=== PATIENT | female | born 1995 | race African-American/Black ===

== ENCOUNTER 2016-10-04 10:14 | Emergency (ER) | payer SELFPAY ==
[2016-10-04 10:16] VITALS: BP 118/80; PULSE 81; RESP 12; TEMP 98.2; O2SAT 99
--- NOTE | 2016-10-04 12:00 | PD ---
HPI Chief Complaint: Junior Buyer Problem/Complaint Time Seen by Provider: 11:37 Travel History International Travel<30 days: No Contact w/Intl Traveler<30days: No Traveled to known affect area: No History of Present Illness HPI 21 YO F presents to the Ed for evaluation of 4 day history of vulvar blisters. Patient endorses unprotected sex with a male partner "a few days" before onset of symptoms. She endorses dysuria and pain in the vulva when urine touches the blisters. She denies fevers, chills, nausea, vomiting, abdominal pain. She is currently menstruating. [facility], [facility] Social History Tobacco Use: No Allergies-Medications (Allergen,Severity, Reaction): Coded Allergies: No Known Allergies (Unverified , 10/04/16) Reported Meds & Prescriptions Reported Meds & Active Scripts Active Acyclovir 400 Mg Tab 400 Mg PO TID 10 Days Bactrim DS (Sulfamethoxazole-Trimethoprim) 800-160 Mg Tab 1 Tab PO BID Flagyl (Metronidazole) 500 Mg Tab 500 Mg PO BID 7 Days Review of Systems Except as stated in HPI: all other systems reviewed are Neg Physical Exam Narrative GENERAL: Well-nourished, well-developed nontoxic-appearing black female in no acute distress. SKIN: Focused skin assessment warm/dry. HEAD: Normocephalic. EYES: No scleral icterus. No injection or drainage. NECK: Supple, trachea midline. No JVD or lymphadenopathy. CARDIOVASCULAR: Regular rate and rhythm without murmurs, gallops, or rubs. RESPIRATORY: Breath sounds equal bilaterally. No accessory muscle use. GASTROINTESTINAL: Abdomen soft, non-tender, nondistended. GENITOURINARY: Multiple pustules on the vulva and vaginal introitus, suspicious for herpes. Vaginal vault with small amount of blood and thin white drainage. Cervical os was closed small amount of blood emanating from the os. No cervical motion tenderness. Uterus nontender and nonenlarged. Bilateral adnexa nontender without masses. MUSCULOSKELETAL: No cyanosis, or edema. BACK: Nontender without obvious deformity. No CVA tenderness. Data Data Last Documented VS Vital Signs Date Time Temp Pulse Resp B/P (MAP) Pulse Ox O2 Delivery O2 Flow Rate FiO2 10/04/16 12:27 98.1 76 18 111/69 (83) 100 Room Air Orders Orders Herpes Simplex Virus Culture (10/04/16 11:38) Gc And Chlamydia Pcr (10/04/16 11:38) Wet Prep Profile (10/04/16 11:38) Urinalysis - C+S If Indicated (10/04/16 11:38) Ed Urine Pregnancytest Poc (10/04/16 11:42) Urine Culture (10/04/16 12:25) Metronidazole (Flagyl) (10/04/16 13:00) Azithromycin Powd Pack (Zithromax Powd P (10/04/16 13:00) Ceftriaxone Inj (Rocephin Inj) (10/04/16 13:00) Lidocaine 1% Inj (50 Ml) (Xylocaine 1% I (10/04/16 13:00) Sulfamet-Trimeth Ds 800-160 Mg (Bactrim (10/04/16 13:00) Labs Laboratory Tests Test 10/04/16 12:15 10/04/16 12:25 Clue Cells (Wet Prep) PRESENT Vaginal Trichomonas (Wet Prep) NONE SEEN Vaginal Yeast (Wet Prep) NONE SEEN Urine Color YELLOW Urine Turbidity HAZY Urine pH 6.0 Urine Specific [place] 1.025 Urine Protein 30 mg/dL Urine Glucose (UA) NEG mg/dL Urine Ketones NEG mg/dL Urine Occult Blood MOD Urine Nitrite NEG Urine Bilirubin NEG Urine Urobilinogen 8.0 MG/DL Urine Leukocyte Esterase LARGE Urine RBC 73 /hpf Urine WBC /hpf Urine WBC Clumps RARE Urine Squamous Epithelial Cells 4 /hpf Urine Transitional Epithelial Cells <1 /hpf Urine Bacteria MANY /hpf Urine Mucus MANY /lpf Microscopic Urinalysis Comment CULTURE INDICATED MDM Medical Decision Making Medical Screen Exam Complete: Yes Emergency Medical Condition: Yes Differential Diagnosis Herpes genitalis versus folliculitis versus UTI versus STI versus other Narrative Course 21-year-old female with complaint of vaginal blistering after unprotected sex with a male partner. Patient denies fever, chills, nausea, vomiting, abdominal pain. She is currently menstruating. Vitals reviewed. Physical exam reveals a well-appearing black female no acute distress. There are pustules in the vulva and introitus that are suspicious for herpes simplex. Scant blood and thin white discharge in the vaginal vault is positive for clue cells. ED urine test negative. UA hazy, moderate occult blood, large leukocyte esterase, and innumerable wbc's in clumps, many bacteria. Culture pending. Patient was treated empirically for gonorrhea ankle media. She is prescribed Flagyl 500 mg twice a day 7 days, Bactrim DS twice a day 3 days, acyclovir 400 mg 3 times a day 10 days with one refill. I spent 5-10 minutes explaining the course of the various illnesses. She is instructed to abstain from sex until test of cure as proven. Follow-up with the [facility] Department, notify all partners, take medications as prescribed, return for worsening symptoms. She indicated understanding of the instructions and is agreeable to the care plan. She is stable and discharged home. Diagnosis Primary Impression: Bacterial vaginosis Additional Impressions: Cystitis Vulvar lesion Referrals: [facility] Dept. Patient Instructions: Bacterial Vaginosis (ED), Chlamydia (ED), General Instructions, Genital Herpes Simplex (ED), Gonorrhea (ED), Urinary Tract Infection in Women (ED) Additional Instructions: Rest, hydrate. Take all antibiotics as prescribed, even if her symptoms resolved. Take Valtrex as prescribed for the next 10 days. Follow-up with the health Department for test of cure and additional STD screening as discussed. Notify all partners of positive STD findings. Abstain from sex until test of cure is proven. Return to the ED for any urgent or emergent medical condition. Med/Other Pt SpecificInfo: Prescription(s) given Scripts Acyclovir (Acyclovir) 400 Mg Tab 400 MG PO TID for Mgmt Viral Infection for 10 Days, TAB 1 Refill Prov: Facundo Parada MD 10/04/16 Sulfamethoxazole-Trimethoprim (Bactrim DS) 800-160 Mg Tab 1 TAB PO BID for Infection, #6 TAB 0 Refills Prov: Facundo Parada MD 10/04/16 Metronidazole (Flagyl) 500 Mg Tab 500 MG PO BID for Infection for 7 Days, TAB 0 Refills Prov: Facundo Parada MD 10/04/16 Disposition: 01 DISCHARGE HOME Condition: Stable Yolanda Real Oct 04, 2016 12:00
[2016-10-04 12:27] VITALS: BP 111/69; PULSE 76; RESP 18; TEMP 98.1; O2SAT 100
[2016-10-04 12:46] LABS: BACTERIA, URINE MANY /hpf; BLOOD, URINE MOD (NEG); GLUCOSE,URINE NEG (NEG); KETONE, URINE NEG (NEG); MUCUS URINE MANY /lpf (OCC); NITRITE,URINE NEG (NEG); SQUAMOUS EPITHELIAL CELL URINE 4 /hpf (0-5); TRANSITIONAL EPI CELLS, URINE <1 /hpf; URINE COLOR YELLOW (YELLW/STRAW)
[2016-10-04 12:48] LABS: COMMENT (UR) CULTURE INDICATED; CULTURE IF INDICATED CULTURE INDICATED
[2016-10-04] MEDS ORDERED: metroNIDAZOLE 500 MG TAB PO ONE (13:00)
[2016-10-04] MEDS ORDERED: SULFAMETHOXAZOLE-TRIMETHOPRIM DS 800-160 MG TAB PO ONE (13:00)
[2016-10-04] MEDS ORDERED: cefTRIAXone 250 MG VIAL IM ONE (13:00)
[2016-10-04] MEDS ORDERED: LIDOCAINE HCL 1% 50 ML VIAL IM ONE (13:00)
[2016-10-04] MEDS ORDERED: AZITHROMYCIN PWD FOR SUSP 1 GM PACKET PO ONE (13:00)
[2016-10-04] MEDS ORDERED: METR-1 PO (13:08)
[2016-10-04] MEDS ORDERED: BACT800T5 PO (13:08)
[2016-10-04] MEDS ORDERED: ACYC400T PO (13:08)
[2016-10-04 15:44] LABS: CHLAMYDIA PCR NOT DETECTED (NOT DETECT); NEISSERIA PCR DETECTED (NOT DETECT)
== END 2016-10-04 14:16 | disposition home or self-care (01) ==
LOC: NEPD 10:14
DX: N76.0 Acute vaginitis (principal); B96.89 Other specified bacterial agents as the cause of diseases classified elsewhere; N30.90 Cystitis, unspecified without hematuria; A49.8 Other bacterial infections of unspecified site; B00.9 Herpesviral infection, unspecified
CPT/HCPCS: 81001; 84703; 87077; 87086; 87186; 87210; 87255; 87491; 87591; 96372; 99284; J0696